=== PATIENT | female | born 1935 | race Caucasian/White ===

== ENCOUNTER → 2017-12-07 | Outpatient (CLI) | payer MEDICARE, OTHER | END | disposition home or self-care (01) | LOC: CFH 14:11 | PROVIDERS: ATTEND Nurse Practitioner | DX: R05 Cough (principal) | CPT/HCPCS: 71046 ==

== ENCOUNTER → 2018-01-20 | Outpatient (CLI) | payer MEDICARE, OTHER | END | disposition home or self-care (01) | LOC: PETCFH 12:54 | PROVIDERS: ATTEND Nurse Practitioner | DX: R91.1 Solitary pulmonary nodule (principal); Z85.3 Personal history of malignant neoplasm of breast | CPT/HCPCS: 78815; A9552 ==

== ENCOUNTER → 2020-02-16 | Outpatient (CLI) | payer MEDICARE, OTHER | END | disposition home or self-care (01) | LOC: CFH 10:45 | PROVIDERS: ATTEND Internal Medicine | DX: C50.912 Malignant neoplasm of unspecified site of left female breast (principal); M81.0 Age-related osteoporosis without current pathological fracture | CPT/HCPCS: 77080 ==

== ENCOUNTER 2020-11-20 14:39 | Inpatient (IN) | payer MEDICARE, OTHER ==
[~2020-11-20] VITALS: Ht 168.9 cm; Wt 64.0 kg
--- NOTE | 2020-11-20 15:19 | NUR ---
ERMD AT BEDSIDE FOR EVALUATION.
--- NOTE | 2020-11-20 15:21 | NUR ---
PATIENT WHEELED BACK FROM TRIAGE WITH CHIEF C/O SOB X1 WEEK. PATIENT DENIES COUGH, OR FEVER, DENIES CHEST PAIN. NADN, HR 132 A-FIB OTHER VSS ERMD AWARE, DAUGHTER AT BEDSIDE, CALL LIGHT WITHIN REACH.
[2020-11-20] MEDS ORDERED: SODIUM CHLORIDE FLUSH 10ML SYR IVF ONE (15:30)
[2020-11-20] MEDS ORDERED: ASPIRIN 81 MG TABLET CHEW PO ONE (15:30)
[2020-11-20] MEDS ORDERED: DILTIAZEM 125 MG in SODIUM CHLORIDE 0.9% 100 ML IV SCH (15:30)
[2020-11-20] MEDS ORDERED: DILTIAZEM 5 MG/ML, 5ML IV ONE (15:30)
[2020-11-20] MEDS ORDERED: HEPARIN 5,000 UNITS/ML, 1ML ONE (15:32)
[2020-11-20 15:33] LABS: ALBUMIN 3.7 g/dL (3.4-5.0); ANION GAP 8 mmol/L (5-15); BASOPHILS % (AUTO) 0 % (0-1); CALCIUM 9.3 mg/dL (8.5-10.1); CHLORIDE 104 mmol/L (98-107); CREATININE 1.22 mg/dL (0.55-1.02); EOSINOPHILS % (AUTO) 0 % (1-7); LYMPHOCYTES % (AUTO) 21 % (22-44); MEAN CORPUSCULAR HEMOGLOBIN 34.4 pg (27.0-34.8); MEAN CORPUSCULAR HGB CONC 33.3 g/dL (32.4-35.8); MEAN PLATELET VOLUME 8.5 fL (7.4-10.4); MONOCYTES % (AUTO) 8 % (2-9); NEUTROPHILS % (AUTO) 71 % (42-75); PLATELET COUNT 221 x10^3/uL (130-400); RED BLOOD COUNT 4.96 x10^6/uL (3.82-5.3); RED CELL DISTRIBUTION WIDTH 14.5 % (9.6-15.2)
[2020-11-20] MEDS ORDERED: ASPIRIN 81 MG TABLET CHEW ONE (15:33)
[2020-11-20] MEDS ORDERED: DILTIAZEM 5 MG/ML, 5ML ONE ×2 (15:33→16:12)
[2020-11-20] MEDS ORDERED: HEPARIN 25,000 UNITS/250ML PMX 250 ML ONE (15:33)
[2020-11-20 15:36] LABS: TROPONIN I 0.058 ng/mL (0.000-0.045)
[2020-11-20] MEDS ORDERED: HEPARIN 5,000 UNITS/ML, 1ML IV PRN (16:00)
[2020-11-20] MEDS ORDERED: HEPARIN 25,000 UNITS/250ML PMX 250 ML IV PRN (16:00)
[2020-11-20] MEDS ORDERED: HEPARIN 5,000 UNITS/ML, 1ML IV ONE (16:00)
--- NOTE | 2020-11-20 16:05 | NUR ---
20 GAUGE IV STARTED RIGHT FA AND 22 GAUGE IV STARTED RIGHT HAND. HEPARIN AND CARDIZEM DRIPS STARTED.
[2020-11-20 16:09] LABS: MD SCAN
[2020-11-20] MEDS ORDERED: DILTIAZEM 5 MG/ML, 5ML IVPush STA (16:11)
--- NOTE | 2020-11-20 16:14 | NUR ---
PATIENT'S HR STILL 134 CONSISTENTLY, ERMD NOTIFIED, ANOTHER 15 MG CARDIZEM BOLUS ORDERED.
--- NOTE | 2020-11-20 16:19 | NUR ---
ANTI-XA ORDERED FOR 2155, 6 HOURS AFTER HEPARIN DRIP STARTED.
[2020-11-20] MEDS ORDERED: METOPROLOL 1 MG/ML, 5ML IVPush PRN (16:30)
[2020-11-20] MEDS ORDERED: DILTIAZEM 5 MG/ML, 5ML IVPush ONE (16:30)
[2020-11-20] MEDS ORDERED: FUROSEMIDE 40 MG/4 ML ONE (16:54)
[2020-11-20] MEDS ORDERED: METOPROLOL 1 MG/ML, 5ML ONE (16:54)
--- NOTE | 2020-11-20 16:57 | NUR ---
PATIENT'S HR STILL 134-138, OTHER VSS, PATIENT MEDICATED PER eMAR. DAUGHTER AT BEDSIDE, CALL LIGHT WITHIN REACH. WAITING FOR BED ASSIGNMENT UPSTAIRS.
[2020-11-20] MEDS ORDERED: ONDANSETRON ODT 4 MG PO PRN (17:00)
[2020-11-20] MEDS ORDERED: ACETAMINOPHEN 325 MG TABLET PO PRN (17:00)
[2020-11-20] MEDS ORDERED: FUROSEMIDE 40 MG/4 ML IV ONE (17:00)
--- NOTE | 2020-11-20 17:11 | NUR ---
REPORT CALLED TO [facility] ON [facility] FOR TRANSFER OF PATIENT CARE.
[2020-11-20] MEDS ORDERED: [UNRECOGNIZED DRUG - REMARK] MC SCH (17:30)
[2020-11-20 17:42] VITALS: BP 106/86
--- NOTE | 2020-11-20 17:53 | NUR ---
PATIENT TRANSFERRED TO CARDI[facility] TELEMETRY IN STABLE CONDITION, VIA GURNEY WITH MONTESSORI TEACHER CONNECTED TO XEROX MACHINE MECHANIC. DAUGHTER AT BEDSIDE.
[2020-11-20 18:04] LABS: TROPONIN I 0.054 ng/mL (0.000-0.045)
[2020-11-20 18:21] VITALS: BP 107/68
[2020-11-20] MEDS: CARVEDILOL 6.25 MG TABLET PO SCH (18:52)
[2020-11-20] MEDS: ATORVASTATIN 40 MG TABLET PO SCH (22:43)
[2020-11-20 22:58] LABS: BASOPHILS % (AUTO) 0 % (0-1); EOSINOPHILS % (AUTO) 1 % (1-7); LYMPHOCYTES % (AUTO) 28 % (22-44); MEAN CORPUSCULAR HEMOGLOBIN 34.3 pg (27.0-34.8); MEAN CORPUSCULAR HGB CONC 32.8 g/dL (32.4-35.8); MEAN PLATELET VOLUME 8.9 fL (7.4-10.4); MONOCYTES % (AUTO) 8 % (2-9); NEUTROPHILS % (AUTO) 63 % (42-75); PLATELET COUNT 208 x10^3/uL (130-400); RED CELL DISTRIBUTION WIDTH 15.1 % (9.6-15.2)
[2020-11-20 22:59] LABS: MD NO
[2020-11-20] MEDS ORDERED: MORPHINE SULFATE 4 MG/ML, 1ML IVPush PRN (23:00)
[2020-11-20 23:11] LABS: ANION GAP 7 mmol/L (5-15); CALCIUM 8.3 mg/dL (8.5-10.1); CHLORIDE 105 mmol/L (98-107); CREATININE 1.65 mg/dL (0.55-1.02)
[2020-11-20 23:12] LABS: ALANINE AMINOTRANSFERASE 67 U/L (12-78); ALBUMIN 3.2 g/dL (3.4-5.0)
[2020-11-20 23:16] LABS: ALKALINE PHOSPHATASE 104 U/L (45-117); BILIRUBIN,TOTAL 1.8 mg/dL (0.2-1.0); TOTAL PROTEIN 5.7 g/dL (6.4-8.2)
[2020-11-21] MEDS: methylPREDNISolone SOD SUCC 40 MG/ML IV SCH ×3 (00:49→16:03)
[2020-11-21 04:25] LABS: BASOPHILS % (AUTO) 0 % (0-1); EOSINOPHILS % (AUTO) 0 % (1-7); LYMPHOCYTES % (AUTO) 20 % (22-44); MD NO; MEAN CORPUSCULAR HEMOGLOBIN 34.5 pg (27.0-34.8); MEAN CORPUSCULAR HGB CONC 33.3 g/dL (32.4-35.8); MEAN PLATELET VOLUME 8.7 fL (7.4-10.4); MONOCYTES % (AUTO) 4 % (2-9); NEUTROPHILS % (AUTO) 76 % (42-75); PLATELET COUNT 210 x10^3/uL (130-400); RED BLOOD COUNT 4.78 x10^6/uL (3.82-5.3); RED CELL DISTRIBUTION WIDTH 14.4 % (9.6-15.2)
[2020-11-21 04:36] LABS: ANION GAP 5 mmol/L (5-15); CALCIUM 8.6 mg/dL (8.5-10.1); CHLORIDE 105 mmol/L (98-107); CREATININE 1.68 mg/dL (0.55-1.02)
[2020-11-21] MEDS: CARVEDILOL 6.25 MG TABLET PO SCH (05:53)
[2020-11-21] MEDS ORDERED: ASPIRIN 81 MG TABLET EC PO SCH (06:00)
[2020-11-21] MEDS ORDERED: SODIUM ZIRCONIUM CYCLOSILICATE 10 GM PO ONE (06:42)
[2020-11-21] MEDS ORDERED: ETOMIDATE 20 MG/10 ML ONE (06:56)
[2020-11-21] MEDS ORDERED: ROCURONIUM 10 MG/ML,10ML ONE (06:56)
[2020-11-21] MEDS: APIXABAN 5 MG TABLET PO SCH ×2 (09:13→20:48)
[2020-11-21] MEDS: METOPROLOL TARTRATE 25 MG TAB PO SCH ×2 (09:14→17:43)
[2020-11-21] MEDS ORDERED: PROPOFOL 10 MG/ML, 20ML ONE (11:36)
[2020-11-21] MEDS ORDERED: EPHEDRINE 50 MG/ML, 1ML ONE (11:36)
[2020-11-21] MEDS ORDERED: SODIUM CHLORIDE 0.9%, 500ML IVBOLUS ONE ×3 (13:00→19:30)
[2020-11-21 13:43] LABS: MICROSCOPIC INDICATED
[2020-11-21 14:41] LABS: ANION GAP 10 mmol/L (5-15); CALCIUM 8.3 mg/dL (8.5-10.1); CHLORIDE 106 mmol/L (98-107); CREATININE 1.62 mg/dL (0.55-1.02)
[2020-11-21] MEDS ORDERED: AMIODARONE 150 MG in DEXTROSE 5% 100 ML IV ONE (17:00)
[2020-11-21] MEDS: AMIODARONE 450 MG in DEXTROSE 5% 241 ML IV PRN (17:09)
[2020-11-21] MEDS ORDERED: FILTER 0.22 MICRON IV PRN (17:30)
[2020-11-21] MEDS: ONDANSETRON 2MG/ML, 2ML IVPush PRN (19:00)
[2020-11-21] MEDS: MORPHINE SULFATE 4 MG/ML, 1ML IVPush PRN (19:11)
[2020-11-21] MEDS ORDERED: NOREPINEPHRINE 1 MG/ML, 4ML ONE (19:18)
[2020-11-21] MEDS: ATORVASTATIN 40 MG TABLET PO SCH (20:48)
[2020-11-22] MEDS: methylPREDNISolone SOD SUCC 40 MG/ML IV SCH (00:51)
[2020-11-22 03:39] LABS: BASOPHILS % (AUTO) 0 % (0-1); EOSINOPHILS % (AUTO) 0 % (1-7); LYMPHOCYTES % (AUTO) 25 % (22-44); MEAN CORPUSCULAR HEMOGLOBIN 34.7 pg (27.0-34.8); MEAN CORPUSCULAR HGB CONC 32.3 g/dL (32.4-35.8); MEAN PLATELET VOLUME 9.5 fL (7.4-10.4); MONOCYTES % (AUTO) 9 % (2-9); NEUTROPHILS % (AUTO) 65 % (42-75); PLATELET COUNT 210 x10^3/uL (130-400); RED BLOOD COUNT 5.15 x10^6/uL (3.82-5.3); RED CELL DISTRIBUTION WIDTH 15.6 % (9.6-15.2)
[2020-11-22 03:46] LABS: ANION GAP 13 mmol/L (5-15); CALCIUM 7.9 mg/dL (8.5-10.1); CHLORIDE 101 mmol/L (98-107); CREATININE 2.48 mg/dL (0.55-1.02)
[2020-11-22] MEDS ORDERED: SODIUM BICARB 8.4%, 50ML SYRINGE ONE ×2 (03:53→09:39)
[2020-11-22] MEDS: MORPHINE SULFATE 4 MG/ML, 1ML IVPush PRN ×4 (03:59→18:55)
[2020-11-22] MEDS ORDERED: SODIUM BICARBONATE 1 MEQ/ML, 50ML VIAL IVPush ONE (04:00)
[2020-11-22] MEDS: NOREPINEPHRINE 8 MG in SODIUM CHLORIDE 0.9% 242 ML IV PRN ×4 (04:02→20:49)
[2020-11-22 04:41] LABS: MD SCAN
[2020-11-22] MEDS: METOPROLOL TARTRATE 25 MG TAB PO SCH (05:54)
[2020-11-22] MEDS: AMIODARONE 450 MG in DEXTROSE 5% 241 ML IV PRN ×2 (06:04→07:10)
[2020-11-22] MEDS ORDERED: CEFTRIAXONE 1,000 MG in DEXTROSE 5% 50 ML IVPB SCH (07:30)
[2020-11-22] MEDS ORDERED: SODIUM POLYSTYRENE SULFONATE ORAL SUSP PO ONE (07:30)
[2020-11-22] MEDS ORDERED: FUROSEMIDE 40 MG/4 ML IV ONE ×2 (08:30→15:00)
[2020-11-22] MEDS ORDERED: APIXABAN 2.5 MG TABLET PO SCH (09:00)
[2020-11-22] MEDS: ONDANSETRON 2MG/ML, 2ML IVPush PRN (09:44)
[2020-11-22] MEDS ORDERED: SODIUM BICARB 8.4%, 50ML SYRINGE IVPush ONE (10:00)
[2020-11-22] MEDS ORDERED: FUROSEMIDE 40 MG/4 ML ONE (10:22)
[2020-11-22] MEDS ORDERED: FUROSEMIDE 100 MG/10 ML IV ONE (10:30)
[2020-11-22] MEDS ORDERED: FUROSEMIDE 120 MG in SODIUM CHLORIDE 0.9% 50 ML IV ONE (11:00)
[2020-11-22] MEDS ORDERED: MEROPENEM 500 MG in SODIUM CHLORIDE 0.9% 100 ML IV SCH ×2 (14:30→18:00)
[2020-11-22] MEDS ORDERED: ALBUMIN HUMAN 25% 100 ML ONE (15:05)
[2020-11-22] MEDS ORDERED: ALBUMIN HUMAN 25% 50 ML IV ONE (15:30)
[2020-11-22] MEDS ORDERED: ALBUMIN HUMAN 25% 100 ML IV PRN (15:30)
[2020-11-22] MEDS ORDERED: DOPAMINE/D5W PMX 250 ML ONE (20:10)
[2020-11-22] MEDS ORDERED: DOPAMINE/D5W PMX 250 ML IV PRN (20:30)
[2020-11-22] MEDS ORDERED: MORPHINE SULFATE 4 MG/ML, 1ML IV ONE (21:30)
[2020-11-22] MEDS ORDERED: LORazepam 2 MG/ML, 1ML IV ONE (21:30)
[2020-11-22] MEDS ORDERED: LORazepam 2 MG/ML, 1ML IVPush PRN (22:00)
[2020-11-22] MEDS ORDERED: MORPHINE SULFATE 4 MG/ML, 1ML IVPush PRN (22:00)
== END 2020-11-23 03:10 | disposition expired ==
LOC: ED 15:19 → EDIP 16:40 → 5SO 17:20 → CCU 21:38
PROVIDERS: ADMIT Internal Medicine; ATTEND Internal Medicine
PROC: B246ZZ4 Ultrasonography of Right and Left Heart, Transesophageal (ICD-10-PCS; 2020-11-21)
PROC: 0T9B70Z Drainage of Bladder with Drainage Device, Via Natural or Artificial Opening (ICD-10-PCS; 2020-11-21)
PROC: 5A2204Z Restoration of Cardiac Rhythm, Single (ICD-10-PCS; principal; 2020-11-21 12:00)
PROC: 02HV33Z Insertion of Infusion Device into Superior Vena Cava, Percutaneous Approach (ICD-10-PCS; 2020-11-22)
PROC: B548ZZA Ultrasonography of Superior Vena Cava, Guidance (ICD-10-PCS; 2020-11-22)
DX: I13.0 Hypertensive heart and chronic kidney disease with heart failure and stage 1 through stage 4 chronic kidney disease, or unspecified chronic kidney disease (principal); I21.A1 Myocardial infarction type 2; I50.33 Acute on chronic diastolic (congestive) heart failure; J96.01 Acute respiratory failure with hypoxia; D68.69 Other thrombophilia; E87.1 Hypo-osmolality and hyponatremia; E87.2 Acidosis; I45.89 Other specified conduction disorders; N17.9 Acute kidney failure, unspecified; I48.92 Unspecified atrial flutter; D72.829 Elevated white blood cell count, unspecified; D75.1 Secondary polycythemia; E87.5 Hyperkalemia; E89.0 Postprocedural hypothyroidism; F17.210 Nicotine dependence, cigarettes, uncomplicated; G47.30 Sleep apnea, unspecified; I27.20 Pulmonary hypertension, unspecified; I48.91 Unspecified atrial fibrillation; J44.9 Chronic obstructive pulmonary disease, unspecified; M81.0 Age-related osteoporosis without current pathological fracture; N18.30 Chronic kidney disease, stage 3 unspecified; R80.9 Proteinuria, unspecified; R57.0 Cardiogenic shock; Z85.3 Personal history of malignant neoplasm of breast; Z90.13 Acquired absence of bilateral breasts and nipples; Z98.82 Breast implant status; Z99.2 Dependence on renal dialysis; Z88.2 Allergy status to sulfonamides
CPT/HCPCS: 36415; 36556; 36600; 71045; 74018; 76770; 76937; 80048; 80053; 81001; 82040; 82533; 82803; 82962; 83605; 83690; 83735; 83880; 84100; 84145; 84443; 84484; 85025; 85379; 85520; 86704; 87040; 87077; 87081; 87086; 87186; 93005; 93306; 93312; 93321; 93325; 93970; 99285; G0378; J0696; J1265; J1644; J1940; J2185; J2405; J2704; J7060; P9047; C1751; J0282; J1642; J2060; J2270; J2920; J7040; J7050